=== PATIENT | male | born 1995 | race Two or more races ===

== ENCOUNTER 2024-05-13 20:55 | Emergency (ER) | payer OTHER ==
[~2024-05-13] VITALS: Ht 177.8 cm; Wt 79.5 kg
[2024-05-13 22:10] VITALS: TEMP 97.9
[2024-05-13 23:00] VITALS: BP 124/81; PULSE 97; RESP 16; O2SAT 100
[2024-05-13] MEDS: TraMADol HCL 50 MG TABLET PO ONE (23:42)
== END 2024-05-14 00:20 ==
LOC: EMS 20:55
DX: S93.402A Sprain of unspecified ligament of left ankle, initial encounter (principal); K21.9 Gastro-esophageal reflux disease without esophagitis; Z90.49 Acquired absence of other specified parts of digestive tract; X58.XXXA Exposure to other specified factors, initial encounter; Y93.89 Activity, other specified; Y92.89 Other specified places as the place of occurrence of the external cause; Y99.8 Other external cause status
CPT/HCPCS: 99283